=== PATIENT | female | born 1995 | race Caucasian/White ===

== ENCOUNTER 2017-04-28 16:20 | Emergency (ER) | payer OTHER, BC ==
[2017-04-28] MEDS ORDERED: TRAMADOL HCL 50 MG TABLET PO ONE (17:48)
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
[2017-04-28 19:50] VITALS: BP 118/70
== END 2017-04-28 19:52 | disposition home or self-care (01) ==
LOC: ER 16:20
DX: S06.0X9A Concussion with loss of consciousness of unspecified duration, initial encounter (principal); S23.9XXA Sprain of unspecified parts of thorax, initial encounter; S33.5XXA Sprain of ligaments of lumbar spine, initial encounter; M54.2 Cervicalgia; M54.6 Pain in thoracic spine; M54.5 Low back pain; V43.52XA Car driver injured in collision with other type car in traffic accident, initial encounter
CPT/HCPCS: 99283; 72040; 72100; 72070; L0120